=== PATIENT | female | born 1960 | race Caucasian/White ===

== ENCOUNTER 2018-04-14 21:41 | Emergency (ER) | payer OTHER ==
[~2018-04-14] VITALS: Ht 160 cm; Wt 66.3 kg
[~2018-04-14 21:41] MED LIST: AMITRIPTYLINE H10 MG PO; AMLODIPINE BESY10 MG PO; BENICAR40 MG PO; CARDIZEM CD,CA120 MG PO; CLARITIN,ALAVAR10 MG PO; COMBIVENT RESPIM4 GM IH; EXCEDRIN EXTRA1 EACH PO; EXCEDRIN MIGRA1 EAC3 PO; FLONASE16 G1 BOTH NARES; FLOVENT 22120 INHALA IH; FOSAMAX70 MG PO; HYDROCHLOROTHIA25 MG PO; ISOSORBIDE DINI10 MG PO; KLONOPIN0.5 M1 PO; LEVAQUIN750 MG PO; MOBIC15 MG PO; NAPROSYN500 MG PO; NICOTINE PATCH1 EAC2 TD; OMEPRAZOLE40 M1 PO; ONE DAILY FOR1 EAC1 PO; PERCOCET 5/31 TABLET PO; PERCOCET 7.51 TABLET PO; PRAVASTATIN SOD40 MG PO; PROAIR HFA8.5 GM IH; PROTRIPTYLINE HC5 MG PO; REQUIP0.5 MG PO; ST. JOSEPH ASPI81 MG PO
[2018-04-14 23:20] LABS: HEMATOCRIT 45.7 % (36.0-46.0); HEMOGLOBIN 15.3 G/DL (11.9-15.5); MCH 31.1 PG (29.0-34.0); MCHC 33.5 G/DL (30.0-36.0); MCV 92.9 FL (83-99); PLATELET COUNT 200 K/uL (156-360); RBC DIS.WIDTH-CV 13.4 % (11.8-14.6); RBC DIS.WIDTH-SD 45.9 % (39-53); RED BLOOD COUNT 4.92 M/uL (3.80-5.20); WHITE BLOOD COUNT 8.6 K/uL (4.1-10.2)
[2018-04-14 23:28] LABS: CHLORIDE 110 mEq/L (99-109); POTASSIUM 3.5 mEq/L (3.7-5.4); SODIUM 140 mEq/L (136-147)
[2018-04-14 23:30] LABS: GLUCOSE 158 mg/dL (70-99); TOTAL PROTEIN 7.2 g/dL (6.4-8.3)
[2018-04-14 23:32] LABS: TOTAL BILIRUBIN 0.4 mg/dL (0.0-1.0)
[2018-04-14 23:34] LABS: ALKALINE PHOSPHATASE 109 IU/L (3-129); CREATININE 0.8 mg/dL (0.6-1.3); GFR ESTIMATE (CALCULATED) > 59 mL/min/
[2018-04-14 23:35] LABS: UREA NITROGEN (BUN) 21 mg/dL (9-23)
[2018-04-14 23:36] LABS: AST (GOT) 6 IU/L (2-34)
[2018-04-14 23:37] LABS: ALT (GPT) 5 IU/L (3-49); CREATINE KINASE 24 IU/L (1-294)
[2018-04-15 01:34] VITALS: BP 161/102
== END 2018-04-15 01:34 | disposition home or self-care (01) ==
LOC: EME 21:41
PROVIDERS: Physician Assistant
DX: R51 Headache (principal); I10 Essential (primary) hypertension; J44.9 Chronic obstructive pulmonary disease, unspecified; M81.0 Age-related osteoporosis without current pathological fracture; G89.29 Other chronic pain; M54.9 Dorsalgia, unspecified; F17.200 Nicotine dependence, unspecified, uncomplicated; Z79.82 Long term (current) use of aspirin
CPT/HCPCS: 80053; 82550; 85027; J1200; J1885; J2765; J7030